=== PATIENT | male | born 1950 | race Caucasian/White ===

== ENCOUNTER 2019-03-09 06:27 | Inpatient (IN) ==
--- NOTE | 2019-03-02 07:34 | ANES ---
Anesthesia Pre Procedure Eval HOME MEDICATIONS Nitroglycerin 0.4 mg SL PRN PRN 06/09/12 [Last Taken Unknown] Ferrous Gluconate 325 mg PO DAILY 09/26/15 [Last Taken Unknown] acetaminophen 500 mg tablet 500 mg PO .COMPLEX PRN 10/23/17 [Last Taken Unknown] aspirin 81 mg tablet,delayed release 81 mg PO DAILY 10/23/17 [Last Taken Unknown] naproxen 500 mg tablet 500 mg PO .COMPLEX PRN 10/23/17 [Last Taken Unknown] pramipexole 1 mg tablet 1 mg PO .COMPLEX 10/23/17 [Last Taken Unknown] tamsulosin 0.4 mg capsule 0.4 mg PO DAILY 10/23/17 [Last Taken Unknown] sertraline 100 mg tablet 100 mg PO DAILY #90 tab 05/17/18 [Last Taken Unknown] spironolactone 25 mg tablet 25 mg PO DAILY #30 tab 06/24/18 [Last Taken Unknown] ropinirole 0.25 mg tablet See Rx Instructions .ROUTE .COMPLEX #180 tablet 11/15/18 [Last Taken Unknown] hydrochlorothiazide 12.5 mg tablet 12.5 mg PO DAILY #30 tab 12/08/18 [Last Taken Unknown] levothyroxine 137 mcg tablet 137 mcg PO DAILY #30 tab 12/08/18 [Last Taken Unknown] atorvastatin 80 mg tablet See Rx Instructions .ROUTE .COMPLEX #30 tablet 01/25/19 [Last Taken Unknown] gabapentin 600 mg tablet See Rx Instructions .ROUTE .COMPLEX #60 tablet 01/25/19 [Last Taken Unknown] baclofen 5 mg tablet 5 mg PO QID #120 tab 02/14/19 [Last Taken Unknown] Allergies/Adverse Reactions: Allergies Allergy/AdvReac Type Severity Reaction Status Date / Time No Known Drug Allergies Allergy Verified 02/24/19 15:35 - Planned Procedure Planned Procedure: Left Arthroplasty Total Knee Medication List Reviewed:: Yes Allergies Verified: Yes Medical History (Last Reviewed 03/02/19 @ 07:31 by Randy Posey CRNA) Cardiac LV ejection fraction >40% (Chronic) February 2019. Ejection fraction 45%. Minimal elevation of right ventricular systolic pressure. Restless leg syndrome (Chronic) Onset Date: Unknown YOHANA (obstructive sleep apnea) (Chronic) Onset Date: Unknown Left ventricular hypertrophy (Chronic) Onset Date: Unknown Hypothyroidism (Chronic) Onset Date: Unknown Hypertension (Chronic) Onset Date: Unknown Hyperlipidemia (Chronic) Onset Date: Unknown Depression (Chronic) Onset Date: Unknown CAD (coronary artery disease) (Chronic) Onset Date: Unknown Anxiety (Chronic) Onset Date: Unknown Knee pain, bilateral Back pain Onset Date: Unknown Dyspnea Onset Date: Unknown Vitamin B12 deficiency Onset Date: Unknown Surgical History (Last Reviewed 03/02/19 @ 07:31 by Randy Posey CRNA) H/O colonoscopy H/O cardiac catheterization Onset Date: Unknown 08/2009, 10/2008, 12/2008 History of appendectomy Onset Date: ~1969 Hx of coronary artery bypass graft Onset Date: ~2008 with stent placement S/P epidural steroid injection 02/20/2006, 05/26/2008 S/P rotator cuff repair Onset Date: ~1998 Dr. Canales- Left Side Family History (Last Reviewed 03/02/19 @ 07:32 by Randy Posey CRNA) Brother , age 60 Cancer brain cancer Father , age 86 Cancer lung cancer COPD (chronic obstructive pulmonary disease) Rheumatoid arthritis Mother , age 78 Alzheimers disease - Family Anesthesia History Family History:: no untoward family reactions to anesthesia, no familial bleeding tendencies, no family history of clotting disorders, no family history of premature - Airway/Neck/Teeth Teeth Condition: intact Neck Exam: limited range of motion Mallampatti Score: 4 Thyromental (T-M) distance: > 6 cm Mandibulo Hyoid distance: > 3 cm - Respiratory Respiratory History: sleep apnea, CPAP/BiPAP home use Respiratory Physical: lungs clear - distant Smoking Status: Never smoker Sleep Apnea currently treated: Yes Sleep Apnea by current assessment: Yes Discussed Risks/Treatment of YOHANA: Yes - Cardiovascular Cardiac History: angina - denies VT but S/P CABG and stents, hypertension, hyperlipidemia Tolerate Activity: Fair Heart Sounds: S1 & S2, Regular - Anesthesia Assessment and Plan ASA Class: PS, III - Morbid obesity, very anxious about being awake, CAD, YOHANA Anesthesia Type Plan: Block - for post op pain relief, Spinal
[~2019-03-09 06:27] MED LIST: MORPHINE SULFATE 15 MG TABLET.SA PO PRN; ROPIVACAINE HCL/PF 100 MG, EPINEPHrine 0.2 MG, KETOROLAC TROMETHAMINE 30 MG in NORMAL S... IJ PRN; TRANEXAMIC ACID 1,000 MG in NORMAL SALINE 100 ML IV PRN; ceFAZolin SODIUM 1 GM VIAL IV PRN
[2019-03-09] MEDS ORDERED: ISOPROPYL ALCOHOL 480 APPL BTL MC ONE (06:28)
[2019-03-09] MEDS ORDERED: LIDOCAINE HCL 20 ML VIAL ONE (07:17)
[2019-03-09] MEDS ORDERED: ONDANSETRON HCL/PF 2 MG/ML VIAL ONE (07:17)
[2019-03-09] MEDS ORDERED: fentaNYL CITRATE/PF 50 MCG/ML AMPUL ONE (07:17)
[2019-03-09] MEDS ORDERED: BUPIVACAINE HCL/EPINEPHRINE 50 ML VIAL ONE (07:18)
[2019-03-09] MEDS ORDERED: PROPOFOL VIAL IV ONE (07:18)
[2019-03-09] MEDS: RINGER'S SOLUTION,LACTATED 1,000 ML IV PRN ×3 (07:50→09:50)
[2019-03-09] MEDS ORDERED: ROCURONIUM BROMIDE 10 MG/ML VIAL ONE (08:02)
[2019-03-09] MEDS ORDERED: NEOSTIGMINE METHYLSULFATE 1 MG/ML VIAL ONE (08:02)
[2019-03-09] MEDS ORDERED: SUCCINYLCHOLINE IN 0.9%NACL/PF 200 MG/10 ML SYRINGE IV ONE (08:02)
[2019-03-09] MEDS ORDERED: GLYCOPYRROLATE 0.2 MG/ML VIAL ONE (08:02)
[2019-03-09] MEDS ORDERED: MAG HYDROX/ALUMINUM HYD/SIMETH 30 ML UDC PO PRN (10:11)
[2019-03-09] MEDS ORDERED: MORPHINE SULFATE 2 MG/ML DISP.SYRIN IV PRN (10:11)
[2019-03-09] MEDS ORDERED: ONDANSETRON HCL/PF 2 MG/ML VIAL IV PRN (10:11)
[2019-03-09] MEDS ORDERED: ACETAMINOPHEN 500 MG TABLET PO PRN (10:11)
[2019-03-09] MEDS ORDERED: MAGNESIUM HYDROXIDE 30 ML UDC PO PRN (10:11)
[2019-03-09] MEDS ORDERED: diphenhydrAMINE HCL 50 MG/ML VIAL IV PRN (10:11)
[2019-03-09] MEDS ORDERED: ZOLPIDEM TARTRATE 5 MG TABLET PO PRN (10:11)
[2019-03-09] MEDS ORDERED: NITROGLYCERIN 0.4 MG/TAB BTL SL PRN (10:13)
--- NOTE | 2019-03-09 10:18 | OR ---
Operative Report - Dictated Report Narrative: Date: 03/09/2019 Preoperative diagnosis: Left knee degenerative joint disease. Postoperative diagnosis: Left knee degenerative joint disease. Procedure: Left total knee arthroplasty. Surgeon: Pierto Osborne M.D. Infant Childcare Provider: Parker Murdock PA-C (provided and essential set of skilled, educated hands that assisted with transfer, positioning, prepping, draping, manipulation, retraction, placement of jigs, injection, insertion of implants, irrigation, closure wounds, and dressings all of which could not be performed by the available surgical crew) Anesthesia: Spinal with regional block and local periarticular joint injection. Complications: None Specimens: Bone. Estimated blood loss: Minimal. Tourniquet time: 105 Minutes at 350 millimeters of mercury. Retained implants: Depuy Attune size 7 left lugged cemented posterior stabilized femoral component. Size 6 fixed-bearing cemented tibial platform. 7 by 5 millimeter posterior stabilized cross-linked tibial insert. 38 millimeter medialized patella button. Indications: Mr. Hernandez is a 68-year-old gentleman who has had long-standing left knee pain and arthrosis. This patient was followed in my clinic for period of time with significant complaints of left knee pain consistent with arthritic changes. He had failed conservative measures including, but not limited to, activity modification, passage of time, medications, and other conservative measures. Patient wished to proceed with surgical treatment. The risks, benefits, and alternatives were discussed in clinic. The risks of , blood clots, bleeding, infection, nerve/tendon blood vessel/ injury, malposition of components, intraoperative fracture, postoperative limited range of motion, persistent pain, failure of components, and need for additional procedures. Patient wished to proceed consent was obtained after answering all questions. Procedure: After marking the correct extremity on the floor, the patient was taken to the operating room. A timeout was performed. IV antibiotics consisting of Ancef were administered prior to the procedure. A regional followed by spinal anesthetic was induced by anesthesia, per my request, on the operative table with all bony prominences well-padded. Pineda catheter was placed, and a bump was placed under the operative side buttock. SCDs and NIKOS hose were utilized on the nonoperative leg. A well-padded tourniquet was applied to the operative thigh. The operative leg was then pre-scrubbed with alcohol, prepped, and draped in a standard sterile fashion. After exsanguinating the extremity with an Esmarch bandage, the tourniquet was inflated. After marking out the anterior knee for standard incision centered over the patella, the skin was incised and dissected down to the joint retinaculum. The joint retinaculum was marked out as well as the horizontal axis of the patella, and a standard medial parapatellar arthrotomy was then made. The most proximal aspect of the quadriceps tendon and the patella tendon insertion were protected from release. A partial synovectomy was performed as well as a resection of the infrapatellar fat pad. The distal femoral fat pad proximal to the trochlea was also resected using cautery. The soft tissues were elevated off the medial aspect of the proximal tibia using a Cruz elevator ensuring that we did not transect the medial collateral ligament. Upon initial evaluation range of motion was approximately 0 degrees to 110 degrees of flexion. There were signs of advanced arthrosis in the medial and patellofemoral greater than lateral joint spaces. There were large marginal osteophytes which were removed with a rongeur. The knee was hyperflexed and the patella was tucked laterally. Protecting the surrounding soft tissues with Homans, an entry drill was placed down the femoral canal using Whitesides line for guidance into the entry point. The intramedullary femoral alignment scooby was utilized in order to cut the distal femur in 5 degrees of valgus resecting 10 millimeters of bone. Next the distal femur was sized to a size 7. A posterior referencing guide was utilized to place the distal femoral cutting block in 3 degrees of external rotation. This was pinned into place. The rotation was confirmed both visually and based on anatomic landmarks. The 4 in 1 cutting jig of the appropriate size was utilized in order to make all bony cuts. The angle wing was used to ensure no notching. Retractors were utilized in order to protect surrounding soft tissues. This cut did not result in any excessive notching. We then cut the box centered over the distal femur. This allowed for resection of the anterior and posterior cruciate ligaments. I then turned my attention to the preparation of the tibia. Using an extra medullary tibial alignment scooby, 4 millimeters of bone was resected off the medial articular surface. This was made perpendicular to the mechanical axis of the joint with the alignment scooby centered over the ankle mortise. The alignment scooby was checked and was noted to be parallel to the mechanical axis, centered over the medial one third of the tibial tubercle, paralleling the anterior surface of the tibia. We then turned our attention to the remaining meniscus and soft tissues. These were removed while protecting the surrounding ligaments and soft tissues. The marginal osteophytes off the anterior, posterior, medial, lateral aspects of the femur and tibia were removed. The tibia was sized out to a size 6. Next the tibia was drilled and punched in an externally rotated position. Next the trial femur and a series of tibial inserts were utilized in order to allow for full extension and maximal flexion. It was found that a 5 millimeter insert gave the best range of motion and stability at multiple flexion points as well as at full extension there was less than 2 mm of gapping both medially and laterally. There is minimal anterior translation with the knee at 90 degrees of flexion and no signs of being able to dislocate the knee. The patella was then prepared. The initial thickness was 24 millimeters. This was reamed down to 14 millimeters parallel to the anterior surface of the patella. It was sized out to a size 38 medialized patella button. This was then drilled and trialed. Without any medial restraint the patella tracked appropriately and did not sublux or dislocate. At this point, it was felt these were the appropriate sized implants, and all trials were removed. The standard periarticular joint injection consisting of ropivacaine, Toradol, and epinephrine were injected into the periarticular joint tissues. The bony surfaces were thoroughly irrigated with a pulsatile-suction saline irrigation device. A bone plug from the prior resected anterior chamfer cut was placed into the drill hole at the distal femur. The bony surfaces were then dried in preparation for placement of the implants. The cement was vacuum mixed per the pulmonology technician's instructions. The cement was placed on the dry bony surfaces and posterior aspect of the implants. The implants were impacted into place, removing all extruded cement. At this point anesthesia administered tranexamic acid per protocol intravenously. The knee was placed in extension with axial loading with the trial insert while the cement cured. Once the cement cured, all remaining extruded cement was removed. The knee was placed through a range of motion with the trial insert to ensure appropriate range of motion and stability. Final range of motion was approximately 0 to 120 degrees. The knee was again thoroughly irrigated with pulsatile saline lavage. The final polyethylene insert was then impacted into place ensuring no retained soft tissues. The remaining periarticular joint injection was injected. A medium Hemovac drain was placed exiting superior laterally. The knee was then placed over a triangle and the arthrotomy was closed with interrupted #1 Vicryl after thoroughly irrigating the joint. The deep and subcutaneous tissues were closed with interrupted 0 and 3-0 Vicryl respectively. Skin was closed with a running subcutaneous 3-0 Monocryl and Prineo Dermabond dressing. 4 x 4's, Sof-Rol, and a full leg Yao wrap were applied. All sponge, needle, blade, and instrument counts were correct prior to closing the wounds. Postoperative condition: The patient was awoken and transferred to the postanesthesia care unit in stable condition. Plan is to be admitted to the inpatient medical/surgical floor postoperatively for 24 hours of IV antibiotics, physical therapy, occupational therapy, and medical comanagement. Patient will be weightbearing as tolerated with range of motion as tolerated. DVT prophylaxis will be with SCDs, NIKOS hose, and pharmacological anticoagulation. Anticipated hospital stay is approximately 1-3 days.
--- NOTE | 2019-03-09 10:35 | ANES ---
Post Anesthesia Discharge - Transfer of Care Transfer of Care handoff given to nurse: Yes - Discharge from PACU Discharge from PACU when meets criteria: Yes - Discharge to ASU Discharge to ASU-no complications/pt stable: Yes
--- NOTE | 2019-03-09 10:36 | ANES ---
Anesthesia Procedure Note Procedure Note: ANESTHESIA PROCEDURE NOTE Date of Procedure: 03/09/2019. Time of procedure: 734. Performed by: Jaquan Oneil CRNA Special Education Aide: None. Preprocedure diagnosis: Left knee degenerative joint disease. Post procedure diagnosis: Same. Procedure: Left ultrasound guided adductor canal block for postoperative analgesia. Indications: The patient is a 68 -year-old male, requesting left ultrasound- guided abductor canal block for postoperative analgesia related to left total knee arthroplasty. Findings: See below. Details of the procedure: The tissue over the intended target site was cleansed with ChloraPrepand draped in a sterile fashion. 2 ml Lidocaine 1 % was infiltrated to the skin and subcutaneous tissue at the intended target site. Under sterile technique and ultrasound guidance a 20-gauge block needle was inserted through the left sartorius muscle to the saphenous nerve just anterior and medial to the superficial femoral artery and vein. 15 mL's of 0.5% bupivacaine was injected after negative aspiration for blood. Needle tip and spread of local anesthetic surrounding the saphenous nerve was observed throughout the injection with real time ultrasound visualization. The needle was then removed intact. No complications were noted. The images were retained in the Hospital medical database. EBL: Minimal. Fluids: N/A. Specimen: N/A. Post procedure condition: The patient tolerated the procedure well. No complications were noted. Thank you for this consultation. Jaquan Oneil CRNA
[2019-03-09] MEDS ORDERED: MORPHINE SULFATE 4 MG/ML SYRG ONE (10:44)
[2019-03-09] MEDS ORDERED: HYDROmorphone HCL 2 MG/ML VIAL ONE (11:00)
[2019-03-09] MEDS ORDERED: HYDROmorphone HCL 2 MG/ML VIAL IV ONE (11:00)
[2019-03-09] MEDS: GABAPENTIN 600 MG TABLET PO SCH ×2 (11:48→20:36)
[2019-03-09] MEDS: KETOROLAC TROMETHAMINE 15 MG/ML VIAL IV SCH ×3 (11:50→23:15)
[2019-03-09] MEDS: ceFAZolin SODIUM 1 GM in DEXTROSE 5 % IN WATER 100 ML IV SCH ×6 (12:02→23:49)
--- NOTE | 2019-03-09 12:17 | ANES ---
Post Anesthesia Assessment - Vital Signs Vitals: Last Vital Signs Temp 36.9 C 03/09/19 12:00 Pulse 73 03/09/19 12:00 Resp 18 03/09/19 12:00 BP 113/60 03/09/19 12:00 Pulse Ox 99 03/09/19 12:00 Airway Patency: Normal - Mental Status Level Of Consciousness: Awake - Pain Level Pain Score: 5 - N/V Assessment Nausea/Vomiting Presence: None Dehydration:: No
[2019-03-09] MEDS: oxyCODONE HCL/ACETAMINOPHEN 1 TAB TABLET PO PRN (14:06)
[2019-03-09] MEDS: DEXTROSE 5%-LACTATED RINGERS 1,000 ML IV PRN ×2 (14:10→22:43)
[2019-03-09] MEDS: PRAMIPEXOLE DI-HCL 0.5 MG TABLET PO SCH ×2 (15:54→20:36)
[2019-03-09] MEDS: MORPHINE SULFATE 15 MG TABLET.SA PO SCH (20:35)
[2019-03-09] MEDS: rOPINIRole HCL 0.5 MG TABLET PO SCH (20:36)
[2019-03-09] MEDS ORDERED: SENNOSIDES/DOCUSATE SODIUM 1 TAB TABLET PO SCH (21:00)
[2019-03-10] MEDS: KETOROLAC TROMETHAMINE 15 MG/ML VIAL IV SCH ×2 (06:02→11:13)
[2019-03-10] MEDS: oxyCODONE HCL/ACETAMINOPHEN 1 TAB TABLET PO PRN ×2 (06:02→16:44)
[2019-03-10 06:53] LABS: Hematocrit 34.8 % (42.0-52.0); Hemoglobin 11.3 gm/dL (13.5-18.0); Mean Cell Volume 98.6 fl (78-100); Mean Corpuscular Hgb Conc 32.5 g/dl (32-36); Mean Platelet Volume 10.2 fl (8-11.3); Platelet Count 222 K/mm3 (150-450); Red Blood Count 3.53 M/mm3 (4.7-6.0); Red Cell Distribution Width 13.7 % (11.5-14.0); White Blood Count 10.9 K/mm3 (4.0-10.5)
[2019-03-10] MEDS ORDERED: LEVOTHYROXINE SODIUM 137 MCG TABLET PO SCH (07:00)
[2019-03-10 07:16] LABS: Anion Gap 6.3 mmol/L (6.8-13.8); BUN/Creatinine Ratio 11.5 (9.0-21.6); Calcium * 8.2 mg/dL (7.9-10.9); Carbon Dioxide 32.1 mmol/L (24-32.6); Estimated Creat Clear 35.1; Potassium 4.4 mmol/L (3.4-4.6)
[2019-03-10] MEDS ORDERED: FERROUS SULFATE 325 MG TABLET PO SCH (09:00)
[2019-03-10] MEDS ORDERED: HYDROCHLOROTHIAZIDE 12.5 MG CAPSULE PO SCH (09:00)
[2019-03-10] MEDS ORDERED: PRAMIPEXOLE DI-HCL 0.5 MG TABLET PO SCH (09:00)
[2019-03-10] MEDS ORDERED: TORSEMIDE 10 MG TABLET PO SCH (09:00)
[2019-03-10] MEDS ORDERED: SPIRONOLACTONE 25 MG TABLET PO SCH (09:00)
[2019-03-10] MEDS ORDERED: ATENOLOL 50 MG TABLET PO SCH (09:00)
[2019-03-10] MEDS ORDERED: ROSUVASTATIN CALCIUM 10 MG TABLET PO SCH (09:00)
[2019-03-10] MEDS ORDERED: SERTRALINE HCL 100 MG TABLET PO SCH (09:00)
[2019-03-10] MEDS: GABAPENTIN 600 MG TABLET PO SCH (09:08)
[2019-03-10] MEDS: MORPHINE SULFATE 15 MG TABLET.SA PO SCH (09:08)
[2019-03-10] MEDS ORDERED: ENOXAPARIN SODIUM 40 MG/0.4 ML SYRG SC SCH (09:11)
[2019-03-10] MEDS: PRAMIPEXOLE DI-HCL 0.5 MG TABLET PO SCH (14:18)
[2019-03-10] MEDS: rOPINIRole HCL 0.5 MG TABLET PO SCH (14:19)
--- NOTE | 2019-03-10 16:05 | DS ---
(1) Status post left knee replacement Problem: Acute (2) Acute blood loss anemia Problem: Acute (3) Renal insufficiency Problem: Acute (4) Cardiac LV ejection fraction >40% Problem: Chronic (5) YOHANA (obstructive sleep apnea) Problem: Chronic (6) Left ventricular hypertrophy Problem: Chronic (7) Hypertension Problem: Chronic Qualifiers: (8) Hyperlipidemia Problem: Chronic Qualifiers: (9) Depression Problem: Chronic (10) CAD (coronary artery disease) Problem: Chronic Qualifiers: Date of Discharge:: 03/10/19 Description of Stay: Mr. Hernandez was admitted to the floor after undergoing left total knee arthroplasty. Tolerated this well. Was admitted to the floor postoperatively for 24 hours of IV antibiotics, pain control, medical comanagement, and occupational and physical therapy. OT and PT were consulted to assist with activities of daily living and ambulation. Was made weightbearing as tolerated with range of motion as tolerated. Pain was initially controlled with IV regimen. This was transitioned to oral once tolerating a by mouth intake. Was resumed on home diet and medications. Had a Pineda catheter inserted and the operating room which was discontinued on postoperative day 1. A drain was placed intraoperatively into the knee which was discontinued on postoperative day 1. Lovenox SCD and NIKOS hose were utilized for DVT prophylaxis. Vital signs remained stable to the hospital course. Serial labs were obtained which showed a final hemoglobin of 11.3 grams down from 13.8 g preoperatively . BMP was reviewed and was stable but did have some elevation in creatinine which reviewing serial labs he has had before at times. Physical examination throughout the hospital course showed an extremity that had sensation that was intact to light touch, palpable pulses, a benign wound, motor intact to the toes, ankle, and knee. Knee range of motion was approximately 5 degrees to 70 degrees. Once an oral pain regimen was tolerated and physical therapy goals were met, it was felt that they were stable for discharge to home. Instructions: Continue with weightbearing as tolerated and range of motion as tolerated. It is OK to shower on the wound if it is not draining. If you note any drainage or for comfort you can cover with dry gauze and tape. Change every 2-3 days as needed. Continue with physical therapy. Resume home diet. Report any fever over 101.5 Fahrenheit, uncontrolled pain, increased drainage, foul odor of drainage, new or increased calf pain or shortness of breath, or any other significant complaints. A 325mg dialy aspirin will be started after finishing anticoagulation if not allergic and then resume his normal 81 mg dose daily. Continue with NIKOS hose on the operative extremity until instructed otherwise. No driving until instructed otherwise. Follow up in approximately 10-14 days. Procedures Performed: see notes below List Procedures: Left total knee arthroplasty Results and Findings: Lab Pending Results 03/10/19 06:49: WBC 10.9 H, RBC 3.53 L, Hgb 11.3 L, Hct 34.8 L, MCV 98.6, MCH 32.0 H, MCHC 32.5, RDW 13.7, Plt Count 222, MPV 10.2 03/10/19 06:49: Sodium 139, Plasma Sodium 139, Potassium 4.4, Chloride 105, Carbon Dioxide 32.1, Anion Gap 6.3 L, BUN 19, Creatinine 1.65 H, Est GFR (Non-Af Amer) 44 L, BUN/Creatinine Ratio 11.5, Random Glucose 113 H, Calcium 8.2 Discharge Location: Home Disposition: Home self-care Condition: Good Discharge Activity: Activity as tolerated, Weight bearing, Other - With wheeled walker Discharge Diet: Low salt, Low fat/chol Referrals: Pietro Osborne MD [Staff Physician] - 03/31/19 9:30 am Problem Oriented Discharge Instructions to Patient/Family: Total Knee Replacement, Care After, [id number] Additional Patient Instructions (free text): Physical Therapy at [facility] outpatient rehab department on ThursdayMarch 11, at 10:00am. Follow up Orthopedic office appointment schedule with Dr. Osborne on March 31 at 9:30am. Prescriptions (Any new or edited meds): Enoxaparin Sodium [Lovenox] 40 mg SC Q24H #7 disp.syrin Transmission Status: Pending to [facility], [place] Morphine Sulfate [Ms Contin] 15 mg PO Q12H #14 tablet.sa Transmission Status: Sent to [facility], [place] oxyCODONE HCL/ACETAMINOPHEN [Percocet 5 MG/325 MG] 2 tab PO Q4H PRN #60 tab PRN Reason: Moderate Pain (Pain Scale 4-6) Transmission Status: Sent to [facility], [place] Sennosides/Docusate Sodium [Senokot-S] 2 tab PO HS #30 tab Transmission Status: Pending to [facility] - [place], [place] Complete Home Medications List: Complete Home Medication List: Nitroglycerin 0.4 mg SL PRN PRN 06/09/12 aspirin 81 mg tablet,delayed release 81 mg PO DAILY 10/23/17 sertraline 100 mg tablet 100 mg PO DAILY #90 tab 05/17/18 spironolactone 25 mg tablet 25 mg PO DAILY #30 tab 06/24/18 hydrochlorothiazide 12.5 mg tablet 12.5 mg PO DAILY #30 tab 12/08/18 levothyroxine 137 mcg tablet 137 mcg PO DAILY #30 tab 12/08/18 Atenolol [Tenormin] 50 mg PO DAILY 03/07/19 Acetaminophen [Tylenol] 1,500 mg PO BID PRN 03/09/19 Atorvastatin Calcium [Lipitor] 80 mg PO DAILY 03/09/19 Ferrous Gluconate [Fergon] 270 mg PO DAILY 03/09/19 Gabapentin 600 mg PO BID 03/09/19 Naproxen 1,500 mg PO TID PRN 03/09/19 Pramipexole Di-HCl [Pramipexole ER] 1.5 mg PO DAILY 03/09/19 Pramipexole Di-HCl [Pramipexole ER] 3 mg PO 1200,1700 03/09/19 Torsemide [Demadex] 10 mg PO DAILY 03/09/19 rOPINIRole HCL [Requip] 0.25 mg PO 1500,2100 03/09/19 Enoxaparin Sodium [Lovenox] 40 mg SC Q24H #7 disp.syrin 03/10/19 Morphine Sulfate [Ms Contin] 15 mg PO Q12H #14 tablet.sa 03/10/19 Sennosides/Docusate Sodium [Senokot-S] 2 tab PO HS #30 tab 03/10/19 oxyCODONE HCL/ACETAMINOPHEN [Percocet 5 MG/325 MG] 2 tab PO Q4H PRN #60 tab 03/10/19 Amb Orders for Discharge: PT Evaluation and Treatment* Facility: [facility], Location: Rehabilitation Services
[2019-03-10 16:28] VITALS: BP 115/61
== END 2019-03-10 16:55 | disposition home or self-care (01) | DRG 470 ==
LOC: MS 06:27 → EDSTATUS 08:00
PROVIDERS: ADMIT Orthopaedic Surgery; ATTEND Orthopaedic Surgery
DX: F32.9 Major depressive disorder, single episode, unspecified; I10 Essential (primary) hypertension; D62 Acute posthemorrhagic anemia; I25.10 Atherosclerotic heart disease of native coronary artery without angina pectoris; E03.9 Hypothyroidism, unspecified; M17.12 Unilateral primary osteoarthritis, left knee; I11.9 Hypertensive heart disease without heart failure; E78.49 Other hyperlipidemia; M25.561 Pain in right knee
CPT/HCPCS: 36415; 73560; 80048; 85027; 94660; 97110; 97116; 97161; 97165; J0330; J2405

== ENCOUNTER 2020-02-20 15:15 | Inpatient (IN) ==
[2020-02-21] MEDS ORDERED: MORPHINE SULFATE 15 MG TABLET.SA PO PRN (06:00)
[2020-02-21] MEDS ORDERED: ceFAZolin SODIUM 1 GM VIAL IV PRN (06:00)
[2020-02-21] MEDS ORDERED: ROPIVACAINE HCL/PF 100 MG, EPINEPHrine 0.2 MG, KETOROLAC TROMETHAMINE 30 MG in NORMAL S... IJ PRN (06:00)
[2020-02-21] MEDS ORDERED: TRANEXAMIC ACID 1,000 MG in NORMAL SALINE 100 ML IV PRN (06:00)
--- NOTE | 2020-02-21 08:56 | ANES ---
Anesthesia Pre Procedure Eval Vitals/Labs: Last Vital Signs Temp 36.8 C 02/21/20 08:35 Pulse 77 02/21/20 08:35 Resp 16 02/21/20 08:35 BP 130/57 02/21/20 08:35 Pulse Ox 95 02/21/20 08:35 HOME MEDICATIONS Nitroglycerin 0.4 mg SL PRN PRN 06/09/12 [Last Taken Unknown] aspirin 81 mg tablet,delayed release 81 mg PO DAILY 10/23/17 [Last Taken 03/02/19] hydrochlorothiazide 12.5 mg tablet 12.5 mg PO DAILY #30 tab 12/08/18 [Last Taken 03/08/19] Naproxen 1,500 mg PO TID PRN 03/09/19 [Last Taken Unknown] Pramipexole Di-HCl [Pramipexole ER] 1.5 mg PO DAILY 03/09/19 [Last Taken Unknown] Pramipexole Di-HCl [Pramipexole ER] 3 mg PO 1200,1700 03/09/19 [Last Taken Unknown] compression hose 0 .ROUTE .MEDSUPPLY #1 ea 03/15/19 [Last Taken Unknown] sertraline 100 mg tablet 100 mg PO DAILY #90 tab 06/29/19 [Last Taken Unknown] gabapentin 600 mg tablet 600 mg PO BID #60 tab 07/06/19 [Last Taken Unknown] levothyroxine 150 mcg tablet 150 mcg PO DAILY #30 tab 07/12/19 [Last Taken Unknown] ropinirole 0.25 mg tablet 0.25 mg PO 1500,2100 #60 tab 08/23/19 [Last Taken Unknown] atorvastatin 80 mg tablet 80 mg PO DAILY #90 tab 09/27/19 [Last Taken Unknown] atenolol 50 mg tablet 50 mg PO DAILY #30 tab 12/27/19 [Last Taken Unknown] torsemide 20 mg tablet 10 mg PO DAILY PRN 02/07/20 [Last Taken Unknown] Allergies/Adverse Reactions: Allergies Allergy/AdvReac Type Severity Reaction Status Date / Time No Known Drug Allergies Allergy Verified 02/13/20 13:27 - Planned Procedure Planned Procedure: Right Arthroplasty Total Knee Medication List Reviewed:: Yes Allergies Verified: Yes Medical History (Last Reviewed 02/21/20 @ 08:55 by Jaquan Oneil CRNA) Cardiac LV ejection fraction >40% (Chronic) February 2019. Ejection fraction 45%. Minimal elevation of right ventricular systolic pressure. Restless leg syndrome (Chronic) Onset Date: Unknown YOHANA (obstructive sleep apnea) (Chronic) Onset Date: Unknown wears CPAP Left ventricular hypertrophy (Chronic) Onset Date: Unknown Hypothyroidism (Chronic) Onset Date: Unknown Hypertension (Chronic) Onset Date: Unknown Hyperlipidemia (Chronic) Onset Date: Unknown Depression (Chronic) Onset Date: Unknown CAD (coronary artery disease) (Chronic) Onset Date: Unknown Anxiety (Chronic) Onset Date: Unknown Edema bilateral lower legs Hearing loss Knee pain, bilateral Wears glasses Back pain Onset Date: Unknown Dyspnea Onset Date: Unknown Vitamin B12 deficiency Onset Date: Unknown Surgical History (Last Reviewed 02/21/20 @ 08:55 by Jaquan Oneil CRNA) Status post left knee replacement (Resolved) 03/09/19 Dylon H/O cardiac catheterization Onset Date: Unknown 08/2009, 10/2008, 12/2008 H/O colonoscopy History of appendectomy Onset Date: ~1969 History of bilateral hip arthroplasty Right- 2008 Left- 2014 History of heart artery stent Onset Date: ~2008 x2 Hx of coronary artery bypass graft Onset Date: ~2008 triple bypass 2008 Hx of total knee arthroplasty Onset Date: 03/09/19 Left total knee arthroplasty-Dr. Osborne S/P epidural steroid injection 02/20/2006, 05/26/2008 S/P rotator cuff repair Onset Date: ~1998 Dr. Canales- Left Side Family History (Last Reviewed 02/21/20 @ 08:55 by Jaquan Oneil CRNA) Brother , age 60 Cancer brain cancer Father , age 86 Rheumatoid arthritis COPD (chronic obstructive pulmonary disease) Cancer lung cancer Mother , age 78 Alzheimers disease Daughter Alive and well Son Alive and well - Family Anesthesia History Family History:: no untoward family reactions to anesthesia, no familial bleeding tendencies, no family history of clotting disorders, no family history of premature - Airway/Neck/Teeth Within Normal Limits:: Yes Mallampatti Score: 4 Thyromental (T-M) distance: > 6 cm Mandibulo Hyoid distance: > 3 cm - Respiratory Respiratory Physical: lungs clear Smoking Status: Never smoker Discussed smoking cessation including day of surgery: No - Cardiovascular Tolerate Activity: Fair Heart Sounds: S1 & S2, Regular - Gastrointestinal NPO since: mn - Anesthesia Assessment and Plan ASA Class: PS, III Anesthesia Type Plan: Block - Ultrasound guided adductor canal nerve block for postop analgesia
[2020-02-21] MEDS ORDERED: HYDROmorphone HCL 2 MG/ML VIAL IV PRN (09:03)
[2020-02-21] MEDS ORDERED: PROCHLORPERAZINE EDISYLATE 5 MG/ML VIAL IV PRN (09:03)
[2020-02-21] MEDS ORDERED: NALOXONE HCL 0.4 MG/ML VIAL IV PRN (09:03)
[2020-02-21] MEDS ORDERED: diphenhydrAMINE HCL 50 MG/ML VIAL IV PRN ×2 (09:03→11:33)
[2020-02-21] MEDS ORDERED: LIDOCAINE HCL 20 ML VIAL ONE (09:10)
[2020-02-21] MEDS ORDERED: fentaNYL CITRATE/PF 50 MCG/ML AMPUL ONE (09:10)
[2020-02-21] MEDS ORDERED: ONDANSETRON HCL/PF 2 MG/ML VIAL ONE (09:11)
[2020-02-21] MEDS ORDERED: PROPOFOL VIAL IV ONE (09:11)
[2020-02-21] MEDS ORDERED: ROCURONIUM BROMIDE 10 MG/ML VIAL ONE (09:11)
[2020-02-21] MEDS ORDERED: SUCCINYLCHOLINE CHLORIDE 20 MG/ML VIAL ONE (09:11)
[2020-02-21] MEDS ORDERED: NEOSTIGMINE METHYLSULFATE 1 MG/ML VIAL ONE (09:11)
[2020-02-21] MEDS ORDERED: BUPIVACAINE HCL/EPINEPHRINE 50 ML VIAL ONE (09:11)
[2020-02-21] MEDS ORDERED: GLYCOPYRROLATE 0.2 MG/ML VIAL ONE (09:11)
[2020-02-21] MEDS: RINGER'S SOLUTION,LACTATED 1,000 ML IV PRN ×3 (09:33→12:45)
[2020-02-21] MEDS ORDERED: ZOLPIDEM TARTRATE 5 MG TABLET PO PRN (11:33)
[2020-02-21] MEDS ORDERED: ACETAMINOPHEN 500 MG TABLET PO PRN (11:33)
[2020-02-21] MEDS ORDERED: MAGNESIUM HYDROXIDE 30 ML UDC PO PRN (11:33)
[2020-02-21] MEDS ORDERED: MAG HYDROX/ALUMINUM HYD/SIMETH 30 ML UDC PO PRN (11:33)
[2020-02-21] MEDS ORDERED: ONDANSETRON HCL/PF 2 MG/ML VIAL IV PRN (11:33)
--- NOTE | 2020-02-21 11:39 | OR ---
Operative Report - Dictated Report Narrative: Date: 02/21/2020 Preoperative diagnosis: Right knee degenerative joint disease. Postoperative diagnosis: Right knee degenerative joint disease. Procedure: Right total knee arthroplasty. Surgeon: Pietro Osborne M.D. Founder Ceo & President: Parker uMrdock PA-C (provided and essential set of skilled, educated hands that assisted with transfer, positioning, prepping, draping, manipulation, retraction, placement of jigs, injection, insertion of implants, irrigation, closure wounds, and dressings all of which could not be performed by the available surgical crew) Anesthesia: General with regional block and local periarticular joint injection. Complications: None Specimens: Bone. Estimated blood loss: Minimal. Tourniquet time: 100 minutes at 350 millimeters of mercury. Retained implants: Depuy Attune size 7 right lugged cemented posterior stabilized femoral component. Size 6 fixed-bearing cemented tibial platform. 7 by 5 millimeter posterior stabilized cross-linked tibial insert. 38 millimeter medialized patella button. Indications: Mr. Hernandez is a 69-year-old gentleman who has had longstanding right knee pain and arthrosis. This patient was followed in my clinic for period of time with significant complaints of right knee pain consistent with arthritic changes. He had failed conservative measures including, but not limited to, activity modification, passage of time, medications, and other conservative measures. Patient wished to proceed with surgical treatment. The risks, benefits, and alternatives were discussed in clinic. The risks of , blood clots, bleeding, infection, nerve/tendon blood vessel/ injury, malposition of components, intraoperative fracture, postoperative limited range of motion, persistent pain, failure of components, and need for additional procedures. Patient wished to proceed consent was obtained after answering all questions. Procedure: After marking the correct extremity on the floor, the patient was taken to the operating room. A timeout was performed. IV antibiotics consisting of Ancef were administered prior to the procedure. A general followed by regional anesthetic was induced by anesthesia, per my request, on the operative table with all bony prominences well-padded. Pineda catheter was placed, and a bump was placed under the operative side buttock. SCDs and NIKOS hose were utilized on the nonoperative leg. A well-padded tourniquet was applied to the operative thigh. The operative leg was then pre-scrubbed with alcohol, prepped, and draped in a standard sterile fashion. After exsanguinating the extremity with an Esmarch bandage, the tourniquet was inflated. After marking out the anterior knee for standard incision centered over the patella, the skin was incised and dissected down to the joint retinaculum. The joint retinaculum was marked out as well as the horizontal axis of the patella, and a standard medial parapatellar arthrotomy was then made. The most proximal aspect of the quadriceps tendon and the patella tendon insertion were protected from release. A partial synovectomy was performed as well as a resection of the infrapatellar fat pad. The distal femoral fat pad proximal to the trochlea was also resected using cautery. The soft tissues were elevated off the medial a spect of the proximal tibia using a Cruz elevator ensuring that we did not transect the medial collateral ligament. Upon initial evaluation range of motion was approximately 0 degrees to 110 degrees of flexion. There were signs of advanced arthrosis in the medial and patellofemoral greater than lateral joint spaces. There were large marginal osteophytes which were removed with a rongeur. The knee was hyperflexed and the patella was tucked laterally. Protecting the surrounding soft tissues with Homans, an entry drill was placed down the femoral canal using Whitesides line for guidance into the entry point. The intramedullary femoral alignment scooby was utilized in order to cut the distal femur in 5 degrees of valgus resecting 10 millimeters of bone. Next the distal femur was sized to a size 7. A posterior referencing guide was utilized to place the distal femoral cutting block in 3 degrees of external rotation. This was pinned into place. The rotation was confirmed both visually and based on anatomic landmarks. The 4 in 1 cutting jig of the appropriate size was utilized in order to make all bony cuts. The lul wing was used to ensure no notching. Retractors were utilized in order to protect surrounding soft tissues. This cut did not result in any excessive notching. We then cut the box centered over the distal femur. This allowed for resection of the anterior and posterior cruciate ligaments. I then turned my attention to the preparation of the tibia. Using an extra medullary tibial alignment scooby, 3 millimeters of bone was resected off the medial articular surface. This was made perpendicular to the mechanical axis of the joint with the alignment scooby centered over the ankle mortise. The alignment scooby was checked and was noted to be parallel to the me chanical axis, centered over the medial one third of the tibial tubercle, paralleling the anterior surface of the tibia. We then turned our attention to the remaining meniscus and soft tissues. These were removed while protecting the surrounding ligaments and soft tissues. The marginal osteophytes off the anterior, posterior, medial, lateral aspects of the femur and tibia were removed. The tibia was sized out to a size 6. Next the tibia was drilled and punched in an externally rotated position. Next the trial femur and a series of tibial inserts were utilized in order to allow for full extension and maximal flexion. It was found that a 5 millimeter insert gave the best range of motion and stability at multiple flexion points as well as at full extension there was less than 2 mm of gapping both medially and laterally. There is minimal anterior translation with the knee at 90 degrees of flexion and no signs of being able to dislocate the knee. The patella was then prepared. The initial thickness was 23 millimeters. This was reamed down to 13 millimeters parallel to the anterior surface of the patella. It was sized out to a size 38 medialized patella button. This was then drilled and trialed. Without any medial restraint the patella tracked appropriately and did not sublux or dislocate. At this point, it was felt these were the appropriate sized implants, and all tr ials were removed. The standard periarticular joint injection consisting of ropivacaine, Toradol, and epinephrine were injected into the periarticular joint tissues. The bony surfaces were thoroughly irrigated with a pulsatile-suction saline irrigation device. A bone plug from the prior resected anterior chamfer cut was placed into the drill hole at the distal femur. The bony surfaces were then dried in preparation for placement of the implants. The cement was vacuum mixed per the trust evaluation supervisor's instructions. The cement was placed on the dry bony surfaces and posterior aspect of the implants. The implants were impacted into place, removing all extruded cement. At this point anesthesia administered tranexamic acid per protocol intravenously. The knee was placed in extension with axial loading with the trial insert while the cement cured. Once the cement cured, all remaining extruded cement was removed. The knee was placed through a range of motion with the trial insert to ensure appropriate range of motion and stability. Final range of motion was approximately 0 to 115 degrees. The knee was again thoroughly irrigated with pulsatile saline lavage. The final polyethylene insert was then impacted into place ensuring no retained soft tissues. The remaining periarticular joint injection was injected. A medium Hemovac drain was placed exiting superior laterally. The knee was then placed over a triangle and the arthrotomy was closed with interrupted #1 Vicryl after thoroughly irrigating the joint. The deep and subcutaneous tissues were closed with interrupted 0 and 3-0 Vicryl respectively. Skin was closed with a running subcutaneous 3-0 Monocryl and Prineo Dermabond dressing. 4 x 4's, Sof-Rol, and a full leg Yao wrap were applied. All sponge, needle, blade, and instrument counts were correct prior to closing the wounds. Postoperative condition: The patient was awoken and transferred to the postanesthesia care unit in stable condition. Plan is to be admitted to the inpatient medical/surgical floor postoperatively for 24 hours of IV antibiotics, physical therapy, occupational therapy, and medical comanagement. Patient will be weightbearing as tolerated with range of motion as tolerated. DVT prophylaxis will be with SCDs, NIKOS hose, and pharmacological anticoagulation. Anticipated hospital stay is approximately 1-3 days.
[2020-02-21] MEDS ORDERED: ALBUTEROL SULFATE 2.5 MG/0.5 ML VIAL.NEB IH ONE ×2 (12:25→12:33)
--- NOTE | 2020-02-21 12:34 | ANES ---
Anesthesia Procedure Note Procedure Note: ANESTHESIA PROCEDURE NOTE Date of Procedure: 02/21/2020. Time of procedure: 929. Performed by: Jaquan Oneil CRNA Industrial Truck Mechanic: None. Preprocedure diagnosis: Right knee degenerative joint disease. Post procedure diagnosis: Same. Procedure: Right ultrasound guided adductor canal block for postoperative analgesia. Indications: The patient is a 69-year-old male, requesting right ultrasound- guided abductor canal nerve block for postoperative analgesia related to right total knee arthroplasty. Findings: See below. Details of the procedure: The tissue over the intended target site was cleansed with ChloraPrepand draped in a sterile fashion. 2 ml Lidocaine 1 % was infiltrated to the skin and subcutaneous tissue at the intended target site. Under sterile technique and ultrasound guidance a 20-gauge block needle was inserted through the right sartorius muscle to the saphenous nerve just anterior and medial to the superficial femoral artery and vein. 15 mL's of 0.5% bupivacaine was injected after negative aspiration for blood. Needle tip and spread of local anesthetic surrounding the saphenous nerve was observed throughout the injection with real time ultrasound visualization. The needle was then removed intact. No complications were noted. The images were retained in the Hospital medical database. EBL: Minimal. Fluids: N/A. Specimen: N/A. Post procedure condition: The patient tolerated the procedure well. No complications were noted. Thank you for this consultation. Jaquan Oneil CRNA
[2020-02-21] MEDS ORDERED: HYDROmorphone HCL 2 MG/ML VIAL ONE (12:48)
[2020-02-21] MEDS ORDERED: NITROGLYCERIN 0.4 MG/TAB BTL SL PRN (12:50)
[2020-02-21] MEDS ORDERED: TORSEMIDE 10 MG TABLET PO PRN (12:50)
[2020-02-21] MEDS: KETOROLAC TROMETHAMINE 15 MG/ML VIAL IV SCH ×3 (14:10→19:59)
[2020-02-21] MEDS: DEXTROSE 5%-LACTATED RINGERS 1,000 ML IV PRN ×2 (14:11→23:43)
[2020-02-21] MEDS: ceFAZolin SODIUM 1 GM in DEXTROSE 5 % IN WATER 100 ML IV SCH ×4 (14:12→19:59)
--- NOTE | 2020-02-21 14:58 | ANES ---
Post Anesthesia Assessment - Vital Signs Vitals: Last Vital Signs Temp 36.7 C 02/21/20 14:27 Pulse 66 02/21/20 14:27 Resp 26 H 02/21/20 14:27 BP 143/78 02/21/20 14:27 Pulse Ox 89 L 02/21/20 14:27 Airway Patency: Normal - Mental Status Level Of Consciousness: Awake - Pain Level Pain Score: 1 - N/V Assessment Nausea/Vomiting Presence: None Dehydration:: No
[2020-02-21] MEDS: rOPINIRole HCL 0.5 MG TABLET PO SCH ×2 (15:39→21:02)
[2020-02-21] MEDS ORDERED: ALBUTEROL SULFATE/IPRATROPIUM 3 ML NEBU IH PRN (17:04)
[2020-02-21] MEDS ORDERED: ALBUTEROL SULFATE/IPRATROPIUM 3 ML NEBU IH ONE (17:04)
[2020-02-21] MEDS: PRAMIPEXOLE DI-HCL 0.5 MG TABLET PO SCH (17:22)
[2020-02-21] MEDS: MORPHINE SULFATE 2 MG/ML DISP.SYRIN IV PRN ×2 (20:29→23:04)
[2020-02-21] MEDS ORDERED: ROSUVASTATIN CALCIUM 20 MG TABLET PO SCH (21:00)
[2020-02-21] MEDS ORDERED: SENNOSIDES/DOCUSATE SODIUM 1 TAB TABLET PO SCH (21:00)
[2020-02-21] MEDS: MORPHINE SULFATE 15 MG TABLET.SA PO SCH (21:02)
[2020-02-21] MEDS: oxyCODONE HCL/ACETAMINOPHEN 1 TAB TABLET PO PRN (21:02)
[2020-02-21] MEDS: GABAPENTIN 600 MG TABLET PO SCH (21:03)
[2020-02-22] MEDS: KETOROLAC TROMETHAMINE 15 MG/ML VIAL IV SCH ×3 (01:23→12:10)
[2020-02-22] MEDS: ceFAZolin SODIUM 1 GM in DEXTROSE 5 % IN WATER 100 ML IV SCH ×2 (01:24)
[2020-02-22] MEDS: oxyCODONE HCL/ACETAMINOPHEN 1 TAB TABLET PO PRN ×3 (02:57→12:58)
[2020-02-22 06:29] LABS: Hematocrit 32.5 % (42.0-52.0); Hemoglobin 10.1 gm/dL (13.5-18.0); Mean Cell Volume 99.7 fl (78-100); Mean Corpuscular Hgb Conc 31.1 g/dl (32-36); Mean Platelet Volume 10.1 fl (8-11.3); Platelet Count 211 K/mm3 (150-450); Red Blood Count 3.26 M/mm3 (4.7-6.0); Red Cell Distribution Width 14.1 % (11.5-14.0); White Blood Count 9.7 K/mm3 (4.0-10.5)
[2020-02-22 06:34] LABS: Anion Gap 7.3 mmol/L (6.8-13.8); BUN/Creatinine Ratio 13.8 (9.0-21.6); Carbon Dioxide 32.1 mmol/L (24-32.6); Estimated Creat Clear 35.7; Potassium 4.4 mmol/L (3.4-4.6)
[2020-02-22] MEDS ORDERED: LEVOTHYROXINE SODIUM 150 MCG TABLET PO SCH (07:00)
[2020-02-22] MEDS: MORPHINE SULFATE 15 MG TABLET.SA PO SCH (08:50)
--- NOTE | 2020-02-22 08:50 | PN ---
Subjective - Date and Time Seen Date: 02/21/20 Time: 16:30 Subjective Narrative: Moo was seen at the request of Dr. Osborne and nursing due to patient confusion, lethargy, and hypoxia. I spoke with patient and . Most of the information was obtained from the patient's due to his condition. He was hypoxic on nasal canula and placed on bipap at settings of 20/9 with the autopap. Blood gases were obtained and patient was hypercapneic and acidotic with pH of 7.28. He was switched to our V60 Bipap with settings of 20/9 and he improved to 7.32 and improve CO2. He was doing much better and oxygenating well. Later in the evening he was able to eat supper on nasal canula and was alert and fully oriented and feeling back to his baseline. Objective - Vitals Vitals: Last Vital Signs Temp 36.9 C 02/22/20 07:00 Pulse 65 02/22/20 07:00 Resp 14 02/22/20 07:00 BP 104/61 02/22/20 07:00 Pulse Ox 100 02/22/20 07:00 - Abnormal Lab Findings Abnormal Lab Findings: Abnormal Lab Results 02/21/20 02/21/20 02/22/20 Range/Units 18:11 20:34 06:23 RBC 3.26 L (4.7-6.0) M/mm3 Hgb 10.1 L (13.5-18.0) gm/dL Hct 32.5 L (42.0-52.0) % MCHC 31.1 L (32-36) g/dl RDW 14.1 H (11.5-14.0) % pCO2 67.0 H 52.7 H (35.0-48.0) mmHg pO2 52.0 L (83.0-108.0) mmHg Total CO2 33.6 H 28.3 H (19.0-24.0) mmol/L Base Excess 3.3 H (-2.0-3.0) mmol/L ABG pH 7.28 L 7.32 L (7.35-7.45) ABG O2 Sat (Measured) 86.7 L (94.0-98.0) % Creatinine (0.4-1.4) mg/dL Est GFR (Non-Af Amer) (60-130) mL/min 11/04/20 Range/Units 06:23 RBC (4.7-6.0) M/mm3 Hgb (13.5-18.0) gm/dL Hct (42.0-52.0) % MCHC (32-36) g/dl RDW (11.5-14.0) % pCO2 (35.0-48.0) mmHg pO2 (83.0-108.0) mmHg Total CO2 (19.0-24.0) mmol/L Base Excess (-2.0-3.0) mmol/L ABG pH (7.35-7.45) ABG O2 Sat (Measured) (94.0-98.0) % Creatinine 1.60 H (0.4-1.4) mg/dL Est GFR (Non-Af Amer) 46 L D (60-130) mL/min - Exam Constitutional: Present: Lethargic Respiratory: Present: decreased breath sounds Cardiovascular/Chest: Present: regular rate, rhythm, no murmur Abdomen: Present: obese, hypoactive Skin Exam: Present: normal color, warm/dry, no cyanosis Cauti Physician Documentation - Urinary Catheter Management Urethral (Pineda) Date of Insertion: 02/21/20 Time of Insertion: 10:05 Assessment/Plan Plan Narrative: Moo is a 69 yo male that developed acute respiratory failure with hypoxia, hypercapnea, and acidosis follow surgery. Chest xray and blood gases indicated poor gas exchange. After discussion with his who reports he has a history of phrenic nerve injury and diaphragm paralysis years ago, I believe that this contributed to his difficulty following surgery. I believe the combination of obesity, impaired diaphragm, and sedation associated with surgery all contributed to atelectasis, poor gas exchange, and the development of acute respiratory failure with hypoxia, hypercapnea, and respiratory acidosis. With the aid of Bipap this was corrected and he improved back to his baseline. I do not believe he has pneumonia. Chest xray findings were atelectasis. - Problems/Diagnosis (1) Acute respiratory failure with hypoxia and hypercapnia Problem: Acute (2) Respiratory acidosis Problem: Acute
[2020-02-22] MEDS: GABAPENTIN 600 MG TABLET PO SCH (08:51)
[2020-02-22] MEDS ORDERED: SERTRALINE HCL 100 MG TABLET PO SCH (09:00)
[2020-02-22] MEDS ORDERED: PRAMIPEXOLE DI-HCL 0.5 MG TABLET PO SCH (09:00)
[2020-02-22] MEDS ORDERED: ATENOLOL 50 MG TABLET PO SCH (09:00)
[2020-02-22] MEDS ORDERED: ENOXAPARIN SODIUM 40 MG/0.4 ML SYRG SC SCH (10:34)
[2020-02-22] MEDS: PRAMIPEXOLE DI-HCL 0.5 MG TABLET PO SCH (12:12)
--- NOTE | 2020-02-22 12:25 | DS ---
(1) Status post right knee replacement Problem: Acute (2) Acute respiratory failure with hypoxia and hypercapnia Problem: Acute (3) Respiratory acidosis Problem: Acute (4) YOHANA on CPAP Problem: Chronic (5) Restrictive lung disease Problem: Chronic (6) Chronic venous insufficiency Problem: Chronic (7) Left ventricular hypertrophy Problem: Chronic (8) Hypothyroidism Problem: Chronic Qualifiers: Hypothyroidism type: acquired Qualified Code(s): E03.9 - Hypothyroidism, unspecified (9) Hypertension Problem: Chronic Qualifiers: Hypertension type: essential hypertension Qualified Code(s): I10 - Essential (primary) hypertension (10) Hyperlipidemia Problem: Chronic Qualifiers: Hyperlipidemia type: mixed hyperlipidemia Qualified Code(s): E78.2 - Mixed hyperlipidemia Date of Discharge:: 02/22/20 Hospital Course: Mr. Hernandez was admitted to the floor after undergoing right total knee arthroplasty. Tolerated this well. Was admitted to the floor postoperatively for 24 hours of IV antibiotics, pain control, medical comanagement, and occupational and physical therapy. Mr. Hernandez had an episode of acute respiratory failure with respiratory acidosis and was evaluated by Dr. Arzate. He was on 15 L of oxygen and then weaned off to room air eventually without difficulty. He felt that this was related to his sleep apnea and this improved. He recommends follow-up with Dr. Cruz as an outpatient for any modifications to his BiPAP. At the time of discharge he reports he is feeling much better and had no complaints. OT and PT were consulted to assist with activities of daily living and ambulation. Was made weightbearing as tolerated with range of motion as tolerated. Pain was initially controlled with IV regimen. This was tr ansitioned to oral once tolerating a by mouth intake. Was resumed on home diet and medications. Had a Pineda catheter inserted and the operating room which was discontinued on postoperative day 1. A drain was placed intraoperatively into the knee which was discontinued on postoperative day 1. Lovenox SCD and NIKOS hose were utilized for DVT prophylaxis. Vital signs remained stable to the hospital course. Serial labs were obtained which showed a final hemoglobin of 10.1 grams. BMP was reviewed and was stable. Physical examination throughout the hospital course showed an extremity that had sensation that was intact to light touch, palpable pulses, a benign wound, motor intact to the toes, ankle, and knee. Knee range of motion was approximately 5 degrees to 75 degrees. Once an oral pain regimen was tolerated and physical therapy goals were met, it was felt that they were stable for discharge to home. Instructions: Continue with weightbearing as tolerated and range of motion as tolerated. It is OK to shower on the wound if it is not draining. If you note any drainage or for comfort you can cover with dry gauze and tape. Change every 2-3 days as needed. Continue with physical therapy. Resume home diet. Report any fever over 101.5 Fahrenheit, uncontrolled pain, increased drainage, foul odor of drainage, new or increased calf pain or shortness of breath, or any other sig nificant complaints. A 325mg dialy aspirin will be started after finishing anticoagulation if not allergic. Continue with NIKOS hose on the operative extremity until instructed otherwise. No driving until instructed otherwise. Follow up in approximately 10-14 days. Procedures Performed: see notes below List Procedures: Right total knee arthroplasty Results and Findings: Lab Pending Results 02/21/20 15:30: Troponin I 0.017 02/21/20 18:11: pCO2 67.0 H, pO2 52.0 L, HCO3 27.2, Total CO2 33.6 H, Base Excess 3.3 H, ABG pH 7.28 L, ABG O2 Sat (Measured) 86.7 L 02/21/20 20:34: pCO2 52.7 H, pO2 99.7, HCO3 26.7, Total CO2 28.3 H, Base Excess 0.0, ABG pH 7.32 L, ABG O2 Sat (Measured) 97.0 02/22/20 06:23: WBC 9.7, RBC 3.26 L, Hgb 10.1 L, Hct 32.5 L, MCV 99.7, MCH 31.0, MCHC 31.1 L, RDW 14.1 H, Plt Count 211, MPV 10.1 02/22/20 06:23: Sodium 139, Plasma Sodium 139, Potassium 4.4, Chloride 104, Carbon Dioxide 32.1, Anion Gap 7.3, BUN 22, Creatinine 1.60 H, Est GFR (Non-Af Amer) 46 L D, BUN/Creatinine Ratio 13.8, Random Glucose 99, Calcium 8.0 Discharge Location: Home Disposition: Home self-care Condition: Good Discharge Activity: Activity as tolerated, Weight bearing, Other - With wheeled walker Discharge Diet: Low salt, Low fat/chol Referrals: Chito Vasquez MD [Primary Care Provider] - Additional Patient Instructions (free text): Physical Therapy at [facility] outpatient rehab on February 22 at 4:00pm. Follow up [facility] Orthopedic office appointment on ThursdayMarch 13 at 8:30am. Prescriptions (Any new or edited meds): Enoxaparin Sodium [Lovenox] 40 mg SC Q24H #7 disp.syrin Transmission Status: Pending to [facility] Morphine Sulfate [Ms Contin] 15 mg PO Q12H #14 tablet.sa Transmission Status: Sent to [facility] oxyCODONE HCL/ACETAMINOPHEN [Percocet 5 MG/325 MG] 2 tab PO Q4H PRN #56 tab PRN Reason: Moderate Pain (Pain Scale 4-6) Transmission Status: Sent to [facility] Sennosides/Docusate Sodium [Senokot-S] 2 tab PO HS #30 tab Transmission Status: Pending to [facility] Complete Home Medications List: Complete Home Medication List: Nitroglycerin 0.4 mg SL PRN PRN 06/09/12 aspirin 81 mg tablet,delayed release 81 mg PO DAILY 10/23/17 Naproxen 1,500 mg PO TID PRN 03/09/19 Pramipexole Di-HCl [Pramipexole ER] 1.5 mg PO DAILY 03/09/19 Pramipexole Di-HCl [Pramipexole ER] 3 mg PO 1200,1700 03/09/19 compression hose 0 .ROUTE .MEDSUPPLY #1 ea 03/15/19 sertraline 100 mg tablet 100 mg PO DAILY #90 tab 06/29/19 gabapentin 600 mg tablet 600 mg PO BID #60 tab 07/06/19 levothyroxine 150 mcg tablet 150 mcg PO DAILY #30 tab 07/12/19 ropinirole 0.25 mg tablet 0.25 mg PO 1500,2100 #60 tab 08/23/19 atorvastatin 80 mg tablet 80 mg PO DAILY #90 tab 09/27/19 atenolol 50 mg tablet 50 mg PO DAILY #30 tab 12/27/19 torsemide 20 mg tablet 10 mg PO DAILY PRN 02/07/20 Enoxaparin Sodium [Lovenox] 40 mg SC Q24H #7 disp.syrin 11/04/20 Morphine Sulfate [Ms Contin] 15 mg PO Q12H #14 tablet.sa 02/22/20 Sennosides/Docusate Sodium [Senokot-S] 2 tab PO HS #30 tab 02/22/20 oxyCODONE HCL/ACETAMINOPHEN [Percocet 5 MG/325 MG] 2 tab PO Q4H PRN #56 tab 02/22/20 Amb Orders for Discharge: PT Evaluation and Treatment* Facility: [facility], Location: Rehabilitation Services
[2020-02-22 14:53] VITALS: BP 126/54
[2020-02-22] MEDS: rOPINIRole HCL 0.5 MG TABLET PO SCH (14:59)
== END 2020-02-22 15:10 | disposition home or self-care (01) | DRG 469 ==
LOC: MS 02-21 08:23 → EDSTATUS 02-21 09:15
PROVIDERS: ADMIT Orthopaedic Surgery; ATTEND Orthopaedic Surgery
DX: I25.10 Atherosclerotic heart disease of native coronary artery without angina pectoris; J95.821 Acute postprocedural respiratory failure; E78.2 Mixed hyperlipidemia; I51.7 Cardiomegaly; E66.9 Obesity, unspecified; Z86.69 Personal history of other diseases of the nervous system and sense organs; M17.11 Unilateral primary osteoarthritis, right knee; I87.2 Venous insufficiency (chronic) (peripheral); G47.33 Obstructive sleep apnea (adult) (pediatric); Z68.43 Body mass index [BMI] 50.0-59.9, adult; E03.9 Hypothyroidism, unspecified; K21.9 Gastro-esophageal reflux disease without esophagitis; J95.89 Other postprocedural complications and disorders of respiratory system, not elsewhere classified; J98.11 Atelectasis; I10 Essential (primary) hypertension